=== PATIENT | male | born 1975 | race Caucasian/White ===

== ENCOUNTER 2017-10-18 16:05 | Emergency (ER) | payer SELFPAY ==
--- NOTE | 2017-10-18 16:31 | ED.PDOC ---
History of Present Illness - General Information Source: patient Exam Limitations: no limitations - History of Present Illness Initial Comments: Robert Flores 41 y/o male stated that he had cramping epigastric pain intermittent since yesterday.Had been nauseated,and had 5 bowel movements today denies diarrhea but feels like having lots of gas.No dysuria ,no hematuria,. Abdominal Pain Onset Location: epigastric Pain Radiation: no radiation Quality: moderate Timing/Duration: 24 hours Improving Factors: nothing Worsening Factors: nothing Associated Symptoms: other - see hpi <Toño Hannon R - Last Filed: 10/18/17 17:06> <Timothy Adan - Last Filed: 10/18/17 20:31> - General Chief Complaint: Abdominal Pain Stated Complaint: abdominal pain Time Seen by Provider: 10/18/17 16:27 Review of Systems - Review of Systems Constitutional: States: no symptoms reported EENTM: States: no symptoms reported Respiratory: States: no symptoms reported Cardiology: States: no symptoms reported Gastrointestinal/Abdominal: States: see HPI Genitourinary: States: no symptoms reported Musculoskeletal: States: no symptoms reported Skin: States: no symptoms reported All other Systems: Reviewed and Negative, No Change from Baseline <RiddhiLundberg R - Last Filed: 10/18/17 17:06> Past Medical History (General) - Patient Medical History Hx Seizures: No Hx Stroke: No Hx Dementia: No Hx Asthma: Yes Hx of COPD: No Hx Cardiac Disorders: No Hx Congestive Heart Failure: No Hx Pacemaker: No Hx Hypertension: No Hx Thyroid Disease: No Hx Diabetes: No Hx Gastroesophageal Reflux: Yes Hx Renal Disease: No Hx of HIV: No Hx MRSA: No Surgical History: no surgical history - Social History Hx Tobacco Use: No Hx Alcohol Use: No Hx Substance Use: No Hx Physical Abuse: No Hx Emotional Abuse: No <Toño Hannon R - Last Filed: 10/18/17 17:06> Family Medical History - Family History Mother Family History: No Known Hx Family Diabetes: Yes - parents <Toño Hannon - Last Filed: 10/18/17 17:06> Physical Exam - Physical Exam General Appearance: Alert, Comfortable, No apparent distress Eyes, Ears, Nose, Throat Exam: normal ENT inspection, pharynx normal Neck: non-tender, full range of motion, supple Respiratory: chest non-tender, lungs clear Cardiovascular/Chest: normal peripheral pulses, regular rate, rhythm, no murmur Peripheral Pulses: No deficit Gastrointestinal/Abdominal: soft, no organomegaly, tenderness - epigastrium,no peritoneal signs-no rebound,no guarding Back Exam: no CVA tenderness, no vertebral tenderness Extremity: no pedal edema, no calf tenderness Skin Exam: normal color, warm/dry <Toño Hannon R - Last Filed: 10/18/17 17:06> Progress - Progress Progress: 10/18/17 19:21 10/18/17 16:33 IV Care:Saline Lock per Protoc QSHIFT 10/18/17 18:27 Gall Bladder [US] Stat 10/18/17 18:40 Abdomen Flat & Upright [RAD] Stat Chest,1 View [RAD] Stat 10/18/17 18:42 EKG Assessment ONCE 10/18/17 18:45 EKG STAT Laboratory Results WBC 14.6 K/mm3 (4.8-10.8) H 10/18/17 16:39 RBC 5.15 M/mm3 (4.70-6.10) 10/18/17 16:39 Hgb 15.3 gm/dL (14.0-18.0) 10/18/17 16:39 Hct 44.7 % (42.0-52.0) 10/18/17 16:39 MCV 86.9 fl (80.0-94.0) 10/18/17 16:39 MCH 29.6 pg (27.0-31.0) 10/18/17 16:39 MCHC 34.1 g/dL (33.0-37.0) 10/18/17 16:39 RDW 13.8 % (11.5-14.5) 10/18/17 16:39 Plt Count 283 K/mm3 (130-400) 10/18/17 16:39 MPV 7.4 fl (7.40-10.4) 10/18/17 16:39 Absolute Neuts (auto) 11.40 K/uL (1.8-6.8) H 10/18/17 16:39 Absolute Lymphs (auto) 1.70 K/uL (1.0-3.4) 10/18/17 16:39 Absolute Monos (auto) 1.20 K/uL (0.2-0.8) H 10/18/17 16:39 Absolute Eos (auto) 0.20 K/uL (0.0-0.4) 10/18/17 16:39 Absolute Basos (auto) 0.10 K/uL (0.0-0.1) 10/18/17 16:39 Neutrophils % 78.2 % (42.0-78.0) H 10/18/17 16:39 Lymphocytes % 11.6 % (20.0-50.0) L 10/18/17 16:39 Monocytes % 8.4 % (2.0-9.0) 10/18/17 16:39 Eosinophils % 1.1 % (1.0-5.0) 10/18/17 16:39 Basophils % 0.7 % (0.0-2.0) 10/18/17 16:39 PT 12.2 SECONDS (9.4-12.5) 10/18/17 16:39 INR 1.080 10/18/17 16:39 PTT (SP) 36.8 SECONDS (25.1-36.5) H 10/18/17 16:39 Sodium 136 mmol/L (135-145) 10/18/17 16:39 Potassium 3.7 mmol/L (3.6-5.0) 10/18/17 16:39 Chloride 101 mmol/L (101-111) 10/18/17 16:39 Carbon Dioxide 26 mmol/L (21-31) 10/18/17 16:39 Anion Gap 12.7 (12-18) 10/18/17 16:39 BUN 14 mg/dL (7-18) 10/18/17 16:39 Creatinine 0.91 mg/dL (0.6-1.3) 10/18/17 16:39 BUN/Creatinine Ratio 15.4 (10-20) 10/18/17 16:39 Random Glucose 108 mg/dL (70-105) H 10/18/17 16:39 Serum Osmolality 273.0 mOsm/L (275-295) L 10/18/17 16:39 Calcium 9.0 mg/dL (8.4-10.2) 10/18/17 16:39 Magnesium 1.7 mg/dL (1.8-2.5) L 10/18/17 16:39 Total Bilirubin 1.0 mg/dL (0.2-1.0) 10/18/17 16:39 Direct Bilirubin 0.1 mg/dL (0-0.2) 10/18/17 16:39 Indirect Bilirubin 0.9 mg/dL (0.2-0.8) H 10/18/17 16:39 AST 37 IU/L (10-42) 10/18/17 16:39 ALT 64 IU/L (10-60) H 10/18/17 16:39 Alkaline Phosphatase 66 IU/L (42-121) 10/18/17 16:39 Creatine Kinase 69 IU/L (38-174) 10/18/17 16:39 CK-MB (CK-2) 1.7 ng/mL (0.0-4.4) 10/18/17 16:39 CK-MB (CK-2) % Not Reportable 10/18/17 16:39 Troponin I < 0.02 ng/mL (0.01-0.05) 10/18/17 16:39 Serum Total Protein 7.4 gm/dL (6.4-8.2) 10/18/17 16:39 Albumin 3.8 g/dl (3.2-5.5) 10/18/17 16:39 Lipase 34 U/L (22-51) 10/18/17 16:39 Urine Color Yellow (Yellow) 10/18/17 17:46 Urine Appearance Clear (Clear) 10/18/17 17:46 Urine pH 7.5 (4.5-7.8) 10/18/17 17:46 Ur Specific [place] 1.020 (1.005-1.030) 10/18/17 17:46 Urine Protein Negative mg/dL 10/18/17 17:46 Urine Glucose (UA) Negative mg/dL (Negative) 10/18/17 17:46 Urine Ketones 15 mg/dL (NEGATIVE) H 10/18/17 17:46 Urine Blood Negative (Negative) 10/18/17 17:46 Urine Nitrite Negative 10/18/17 17:46 Urine Bilirubin Negative (NEGATIVE) 10/18/17 17:46 Urine Urobilinogen 0.2 mg/dL (0.2-1.0) 10/18/17 17:46 Ur Leukocyte Esterase Negative (Negative) 10/18/17 17:46 Urine RBC 0-1 /hpf 10/18/17 17:46 Urine WBC 0 /hpf 10/18/17 17:46 Ur Epithelial Cells 0 /hpf 10/18/17 17:46 Urine Bacteria 0 10/18/17 17:46 Urine Mucus Small 10/18/17 17:46 10/18/17 19:52 PT REPORTS DAILY NAPROXEN USE FOR ARTHRITIS, EARLY SATIETY, PAIN WITHIN 15 MINUTES OF FOOD CONSUMPTION AND GERD SYMPTOMS, DISCUSSED GERD DIET, INCREASED H20 INTAKE, DISCUSSED LAB WORK WITH PATIENT. REPEAT ABD EXAM IS NON SURGICAL, MILD EPIGASTRIC TENDERNESS TO DEEP PALPATION WITH NO GUARDING 10/18/17 20:20 US SHOWS FATTY LIVER INFILTRATION NO ACUTE ABNORMALITY EKG NSR, RATE 62, UT 148, QRS 84, ATC 428 10/18/17 20:29 CXR, ABD XRAY NEGATIVE PT HAS ATYPICAL SYMPTOMS FOR DISSECTION/ ACS/PE/ DIVERTICULITIS OR COLITIS; CURRENTLY PATIENT IS NONTOXIC, APPEARS COMFORTABLE AND STABLE FOR OUTPATIENT F/ U WITH HIS PCP <Timothy Adan - Last Filed: 10/18/17 20:31> Departure <Toño Hannon - Last Filed: 10/18/17 17:06> - Departure Time of Disposition: 20:22 Diet: low fat, low cholesterol Activity: increase activity as tolerated <Timothy Adan - Last Filed: 10/18/17 20:31> - Departure Clinical Impression: Steatosis of liver Abdominal pain Qualifiers: Abdominal location: epigastric Qualified Code(s): R10.13 - Epigastric pain Gastritis Qualifiers: Gastritis type: other gastritis Chronicity: unspecified Gastritis bleeding: without bleeding Qualified Code(s): K29.60 - Other gastritis without bleeding Disposition: Discharge to Home or Self Care Condition: Excellent Departure Forms: ED Discharge - Pt. Copy, Patient Portal Self Enrollment Instructions: DI for Abdominal Pain-Adult, DI for Gastroesophageal Reflux Disease (GERD), GERD Diet, Gastritis, DI for Acute Abdomen Prescriptions: Acetaminophen W/ Codeine [Tylenol W/ CODEINE #3] 1 ea PO Q6HR PRN #14 PRN Reason: Abdominal Distress Hyoscyamine Sulfate [Levsin/Sl] 0.125 mg SL Q6HR PRN #20 sub PRN Reason: Abdominal Cramping Celecoxib 100 mg PO BID PRN #20 cap PRN Reason: Moderate Pain Sucralfate Tab [Carafate Tab] 1 gm PO ACHS #30 tablet Home Medications: Ambulatory Orders Acetaminophen W/ Codeine [Tylenol W/ CODEINE #3] 1 ea PO Q6HR PRN #14 10/18/17 Celecoxib 100 mg PO BID PRN #20 cap 10/18/17 Hyoscyamine Sulfate [Levsin/Sl] 0.125 mg SL Q6HR PRN #20 sub 10/18/17 Sucralfate Tab [Carafate Tab] 1 gm PO ACHS #30 tablet 10/18/17
[2017-10-18] MEDS ORDERED: LACTATED RINGERS 1,000 ML IVS ONE (16:33)
[2017-10-18] MEDS ORDERED: ONDANSETRON INJ 4 MG/2 ML VIAL ONE (17:04)
[2017-10-18] MEDS ORDERED: MORPHINE SULFATE INJ 10 MG/ML VIAL IV ONE ×2 (17:05→18:19)
[2017-10-18] MEDS ORDERED: ONDANSETRON INJ 4 MG/2 ML VIAL IV ONE (17:05)
[2017-10-18] MEDS ORDERED: PANTOPRAZOLE SODIUM IV 40 MG VIAL IV ONE (17:15)
[2017-10-18] MEDS ORDERED: PANTOPRAZOLE SODIUM IV 40 MG VIAL ONE (17:32)
[2017-10-18] MEDS ORDERED: DICYCLOMINE HCL INJ 20 MG/2 ML AMP IM ONE (18:23)
[2017-10-18 18:28] VITALS: O2SAT 99
[2017-10-18] MEDS ORDERED: FAMOTIDINE IV PREMIX 20 MG in PREMIX BAG 1 BAG IVPB ONE (19:33)
[2017-10-18] MEDS ORDERED: ALUM & MAG HYDROX-SIMETHICONE 30 ML, LIDOCAINE VISCOUS 2% 15 ML PO ONE ×2 (19:33)
[2017-10-18] MEDS ORDERED: ALUM & MAG HYDROX-SIMETHICONE 30 ML UD ONE (19:35)
[2017-10-18] MEDS ORDERED: LIDOCAINE HCL 2% (MOUTH-THROAT) 15 ML UD ONE (19:35)
[2017-10-18] MEDS ORDERED: FAMOTIDINE IV PREMIX 50 ML IVPB ONE (19:36)
--- NOTE | 2017-10-18 19:54 | RAD ---
PROCEDURE: XR CHEST 1 VIEW HISTORY: pain COMPARISON: None TECHNIQUE: Single projection of the chest was done. FINDINGS: The lung pisano are well inflated . There are no discrete airspace infiltrates, pneumothoraces or pleural effusions. The pulmonary vascularity is normal. The cardiomediastinal silhouette is unremarkable for patient's age and sex. IMPRESSION: There is no acute pleural-parenchymal process seen in the imaged lung pisano. Location of Interpretation: Teleradiology Electronically signed by: Karl Chiu MD 10/18/2017 7:52 PM CDT Workstation: [id number]
--- NOTE | 2017-10-18 19:55 | RAD ---
PROCEDURE: Abdomen Flat Upright Clinical History: pain Indication: Same as above Comparison: None Technique: Two views of the abdomen and pelvis were done. Findings: There is no gross evidence of free air in the abdomen or the pelvis . The small and large bowel gas pattern does not show any evidence of obstruction, ileus or bowel wall thickening. There is no visualization of radiopaque calculi in the outline of the urinary tract. The visualized lung bases are unremarkable . There is no significant constipation. Impression: Unremarkable abdomen and pelvis Location of Interpretation: [id number] Electronically signed by: Karl Chiu MD 10/18/2017 7:52 PM CDT Workstation: [id number]
--- NOTE | 2017-10-18 20:11 | US ---
EXAM: Gall Bladder CLINICAL INDICATION: 41-year-old male with epigastric pain. COMPARISON: None. TECHNIQUE: Ragland scale sonography of the right upper quadrant abdomen. FINDINGS: Coarsened hepatic echogenicity measuring up to 17.2 cm suggestive of diffuse hepatic steatosis. GALLBLADDER: Within normal limits without gallbladder wall thickening pericholecystic fluid or cholelithiasis. Negative sonographic Lee's sign. BILIARY TRACT: No significant abnormalities noted. The common bile duct measures 5 mm. The pancreas is not visualized secondary to obscuration by overlying bowel gas. OTHER: No significant abnormalities noted. IMPRESSION: 1. Diffuse hepatic steatosis. 2. No specific sonographic findings noted to suggest etiology of the patient's symptoms. Electronically signed by: Precious Perera MD 10/18/2017 8:08 PM CDT
[2017-10-18] MEDS ORDERED: HYDROcodone 5MG/APAP 325MG 1 EA TAB PO ONE (20:16)
[2017-10-18] MEDS ORDERED: HYOSCYAMINE SULFATE 0.125 MG TAB PO ONE (20:28)
[2017-10-18] MEDS ORDERED: SUCRALFATE 1 GM/10 ML 1 GM UD PO ONE (20:29)
[2017-10-18 21:38] VITALS: BP 162/84; TEMP 98.2
== END 2017-10-18 21:28 | disposition home or self-care (01) ==
LOC: ER 16:05
DX: K29.60 Other gastritis without bleeding (principal); J45.909 Unspecified asthma, uncomplicated; M19.90 Unspecified osteoarthritis, unspecified site; Z79.899 Other long term (current) drug therapy
CPT/HCPCS: 36415; 71045; 74019; 76705; 80048; 80076; 81001; 82550; 82553; 83690; 84484; 85025; 85610; 85730; 93005; J0500; J2270; J2405; J3490; J7120